=== PATIENT | male | born 1935 | race Hispanic/Latino ===

== ENCOUNTER 2022-09-23 07:57 | Day surgery (SDC) | payer SELFPAY ==
[2022-09-21 09:31] LABS: BASOPHILS % (AUTO) 1.3 % (0.0-5.0); EOSINOPHILS % (AUTO) 2.3 % (0.0-8.0); HEMATOCRIT 43.1 % (42-54); LYMPHOCYTES % (AUTO) 26.2 % (21.0-51.0); MEAN CORPUSCULAR HEMOGLOBIN 30.1 pg (27.0-33.0); MEAN CORPUSCULAR HGB CONC 32.5 g/dL (32.0-36.0); MEAN CORPUSCULAR VOLUME 92.7 fL (79-99); MONOCYTES % (AUTO) 10.3 % (3.0-13.0); NEUTROPHILS % (AUTO) 59.6 % (40.0-77.0); PLATELET COUNT (AUTO) 145 K/uL (130-400); RED BLOOD CELL COUNT(AUTO) 4.65 MIL/uL (4.50-6.20); WHITE BLOOD COUNT (AUTO) 6.1 K/uL (4.8-10.8)
[2022-09-21 09:41] LABS: CREATININE 1.1 mg/dL (0.5-1.5); POTASSIUM 4.4 mmol/L (3.5-5.1)
[2022-09-21 09:50] LABS: INR 0.95 (0.85-1.15); PROTHROMBIN TIME 10.4 SEC (9.6-11.6)
[2022-09-21 09:52] LABS: PARTIAL THROMBOPLASTIN TIME 28.7 SEC (26.3-35.5)
[2022-09-21 10:12] VITALS: BP 156/75
[2022-09-23] VITALS (18 sets, daily range): BP systolic 120–187; BP diastolic 68–123
[~2022-09-23] VITALS: Ht 170.2 cm; Wt 77.3 kg
[~2022-09-23 07:57] MED LIST: 0.9%NACL 1000ML 1,000 ML IV SCH; ATOR10 PO; FURO20TA6 PO; LOSA100T59 PO
[2022-09-23] MEDS ORDERED: LIDOCAINE HCL 2% VISCOUS 15 ML UDCUP ONE (08:16)
[2022-09-23] MEDS ORDERED: MIDAZOLAM HCL 1 MG/ML 2ML VIAL ONE (11:01)
[2022-09-23] MEDS ORDERED: FENTANYL CITRATE PF 50 MCG/1 ML 2ML VIAL ONE (11:01)
== END 2022-09-23 12:16 | disposition home or self-care (01) ==
LOC: DAH 07:57
PROVIDERS: ATTEND Internal Medicine Cardiovascular Disease
DX: I33.0 Acute and subacute infective endocarditis (principal); I34.0 Nonrheumatic mitral (valve) insufficiency; I25.2 Old myocardial infarction; I10 Essential (primary) hypertension; E78.5 Hyperlipidemia, unspecified; I25.10 Atherosclerotic heart disease of native coronary artery without angina pectoris; Z95.2 Presence of prosthetic heart valve; Z95.3 Presence of xenogenic heart valve; Z79.01 Long term (current) use of anticoagulants
CPT/HCPCS: 80048; 85025; 85610; 85730; 36415; 93005; 93312; 93325; J3010; J7030; J2250; A4215; A4222; A4221; A4663; A4216; A4606; A4223 ×3; 99152